=== PATIENT | female | born 1985 | race Caucasian/White ===

== ENCOUNTER → 2016-05-26 | Outpatient (CLI) | payer OTHER ==
[~2016-05-26] MED LIST: PERC5TAB8
--- NOTE | 2016-05-26 19:28 | REP ---
Clinical: Pain . Technique: AP, lateral, bilateral oblique views left foot . Findings: The osseous structures and joint spaces are intact and normal. There is no evidence for acute fracture or dislocation. Surrounding soft tissues are unremarkable. No subcutaneous emphysema or radiodense foreign body. Impression: Normal examination. No acute fracture or dislocation. Signed by Gilmer Butts MD 05/26/2016 07:20 P
== END ==
LOC: M LRY 18:49
PROVIDERS: ATTEND Physician Assistant
DX: M79.672 Pain in left foot (principal)

== ENCOUNTER 2019-04-10 23:35 | Emergency (ER) | payer MEDICAID, OTHER ==
[~2019-04-10] VITALS: Ht 167.6 cm; Wt 69.1 kg
[2019-04-10 23:37] VITALS: BP 126/58
[2019-04-10] MEDS ORDERED: AMPH1CAP16 (23:51)
[2019-04-11] MEDS ORDERED: AUGM875T28 PO (00:13)
[2019-04-11] MEDS ORDERED: AUGMENTIN 875 MG TAB PO ONE (00:15)
[2019-04-11] MEDS ORDERED: ADACEL/BOOSTRIX VACCINE (DIPHTH/PERTUSS/ACELL/TETANUS)0.5ML SYR (90715) IM ONE (00:15)
== END 2019-04-11 00:28 | disposition home or self-care (01) ==
LOC: M ED 23:35
DX: S71.131A Puncture wound without foreign body, right thigh, initial encounter (principal); W54.0XXA Bitten by dog, initial encounter; Y92.018 Other place in single-family (private) house as the place of occurrence of the external cause; Z79.899 Other long term (current) drug therapy